=== PATIENT | female | born 1985 | race Caucasian/White ===

== ENCOUNTER 2018-08-12 16:40 | Emergency (ER) | payer OTHER, SELFPAY ==
[2018-08-12] VITALS (9 sets, daily range): BP systolic 104–131; BP diastolic 53–94; PULSE 85–112; RESP 12–18; TEMP 36.8; O2SAT 98–100; BMI 25.0
--- NOTE | 2018-08-12 16:52 | RAD_ITS ---
STUDY: X-RAY - LEFT KNEE REASON FOR EXAM: Female, 32 years old. Child fell into leg. TECHNIQUE: 2 view(s) of the knee. COMPARISON: None. FINDINGS: The study is limited due to flexion of the knee. 90 degrees in the AP projection and overlying trauma mat limits visualization. Normal visualized distal femur. Normal visualized proximal tibia and fibula. Normal proximal tibiofibular articulation. Evaluation of the knee joints is limited. There is no obvious dislocation. The soft tissue structures are unremarkable. RAD/Knee 1 or 2 Views IMPRESSION: Limited study due to flexion of the knee and surrounding traumatic mat. No obvious fracture or dislocation. Electronically Signed: Malik Denny DO at 18:02 EST Tel [phone], Service support ,
[2018-08-12] MEDS: fentaNYL 100 MCG/2 ML Ampul 50 MCG IV (17:08)
[2018-08-12] MEDS: Etomidate 20 MG/10 ML Vial 10 MG IV (17:19)
[2018-08-12] MEDS: Morphine 4 MG/ML Syringe IV (17:32)
[2018-08-12] MEDS: Ketorolac 30 MG/ML Syringe IV (17:33)
--- NOTE | 2018-08-12 17:33 | ED.DCSUM_ITS ---
History of Present Illness Chief Complaint: Lower Extremity Injury Informant: Patient Onset: Today - JPTA Context: Sudden Onset Quality: pain Location: left knee Current Severity: Moderate Maximum Severity: Severe Worsened by: moving knee Relieved by: remaining still. EMS splint. Associated Symptoms: none Narrative: Patient was at the park with her children when 1 of her kids accidentally came down on her left knee/leg the wrong way, and she states it caused her kneecap to go off to the outside, causing a dislocation. She was not able to move her knee without any significant pain and was not able to bear weight, arrived by EMS. She has never had this happen before. Denies any other injuries. Past Medical History - Allergies and Home Meds Allergies/Adverse Reactions: Allergies Penicillins [PCN] Allergy (Verified 08/12/18 16:50) Rash Primary Care Physician: Jayro Sotomayor DO [Primary Care Provider] - Barry Rivera MD [STAFF PHYSICIAN] - (Call for appointment to be seen next week) Lives: With Family Smoking Status: Never smoker Review of Systems Musculoskeletal: Reports: Extremity Pain Neurological: Denies: Weakness, Numbness Physical Exam Vital Signs/Narrative: Vital Signs Temp Pulse Resp BP Pulse Ox 08/12/18 16:41 98.3 F 112 H 18 127/66 H 100 08/12/18 16:40 112 H 18 127/66 H 100 Inital Vital Signs reviewed: Yes General: Well nourished, Well developed, No Acute Distress Head: Normocephalic, Atraumatic Cardiovascular: Regular rate, Regular rhythm, No murmurs Respiratory: No distress, CTA bilaterally, Chest nontender Extremities: No edema, Tenderness - to left anterior knee, which has a patella deformity, w/ lateral dislocation. very limited ROM of left knee due to pain. holding in flexion and thigh flexion. NVID.. Negative for: Calf Tenderness Skin: Normal color, No rash, No Trauma - skin at left knee intact Neurological: Alert, Oriented x3, Cranial nerves II-XII grossly intact, Normal Strength, Normal Sensation Psychological: Normal affect, Normal Mood Diagnostic/Tx/Re-eval Clinical Impression(s) from Imaging Studies Knee X-Ray 08/12/18 16:52 IMPRESSION: Limited study due to flexion of the knee and surrounding traumatic mat. No obvious fracture or dislocation. Electronically Signed: Malik Denny DO at 18:02 EST Tel [phone], Service support , - Medical Decision Making Initial 2 view knee x-ray was obtained, but is very limited secondary to the position patient is holding her left lower extremity in, and the EMS splint. It does not show any obvious fractures. Clinically, she has an obvious patellar dislocation. She has been n.p.o. for 5.5 hours, asked that we perform procedural sedation, she understands the risks which we discussed, she only had a small piece of bread when she last had food and has had nothing since. She was given fentanyl 50 mcg, followed by etomidate 10 mg. We removed the splint, extended her knee, the patella reduced very easily to neutral. Her knee itself is stable, there is no knee dislocation. Postreduction x-rays are obtained and show good patellar reduction without fracture on my interpretation, she recovered uneventfully from procedural sedation and was in pain, placed in a knee immobilizer, she was given additional IV analgesics, crutches, and will be discharged with to follow-up with orthopedics. There is no one on-call for no-doc at this time in order to discuss with further, and pt has never seen an orthopod in the past; will refer her to Dr. Yaneth Rivera, who is online merchandising specialist for the [facility]. Procedures Procedure(s): 1-procedural sedation. Etomidate 10 mg IV push by myself, following fentanyl 50 mcg IV. No complications, monitored with oxygen and IV fluids along with nursing at the bedside throughout. Tolerated procedure well. 2-closed reduction left patella. Easily reduced with manual manipulation along with extension of the left knee. No complications. Neurovascularly intact distally after reduction which was verified by x-ray. ED Disposition - Plan for ED Patient: Disposition: Home or Assisted Living Diagnosis: Dislocation of patella, left, closed Instructions: ED Immobilizer Knee, ED Dislocation Patella Prescriptions: Oxycodone HCl/Acetaminophen [Percocet 5/325] 1 tab PO Q6H PRN PRN 3 Days #12 tab PRN Reason: Pain Referrals: Jayro Sotomayor DO [Primary Care Provider] - Barry Rivera MD [STAFF PHYSICIAN] - (Call for appointment to be seen next week)
--- NOTE | 2018-08-12 18:03 | RAD_ITS ---
STUDY: X-RAY - LEFT KNEE REASON FOR EXAM: Female, 32 years old. Post reduction. TECHNIQUE: 2 view(s) of the knee. COMPARISON: August 12, 2018 (1500 hours). FINDINGS: Normal visualized distal femur. Normal visualized proximal tibia and fibula. Normal proximal tibiofibular articulation. The patella appears minimally displaced laterally. There is patella leslie. Normal medial femorotibial compartment. Normal lateral femorotibial compartment. There is loss of definition of the anterior soft tissues. RAD/Knee 1 or 2 Views IMPRESSION: Slight lateral positioning of the patella with patella alto. Electronically Signed: Malik Denny DO at 18:28 EST Tel [phone], Service support ,
== END 2018-08-12 18:40 | disposition home or self-care (01) ==
LOC: ED 17:49
PROVIDERS: Emergency Provider Emergency Medicine; Family Provider Family Medicine; PCP Family Medicine
DX: S83.005A Unspecified dislocation of left patella, initial encounter (principal); W50.0XXA Accidental hit or strike by another person, initial encounter; Y93.89 Activity, other specified; Y92.830 Public park as the place of occurrence of the external cause; Y99.8 Other external cause status
CPT/HCPCS: 27560; 73560; 96361; 96374; 96375; 99152; 99285; J7040; A4216